=== PATIENT | male | born 1960 ===

== ENCOUNTER 2016-11-18 15:39 | Emergency (ER) | payer OTHER ==
[2016-11-18 16:12] VITALS: BP 148/79
--- NOTE | 2016-11-18 17:01 | UC ---
Complaint Male HPI - HPI Summary HPI Summary: Painful urination starting 2-3 days ago. Pt had similar symptoms and was dx with UTI in Oct 2015 by this author. Pt states that he seemed to improve with antibiotics in 2015, though urine culture did not grow anything. Has been sexually active in the last year, states he always uses barrier with sex. Hasn' t had any prostate testing with PCP, no acute problems but has noticed gradual reduction in urine stream over years. Denies back pain, fever, or vomiting. No scrotal or testicular pain/lump/swelling. - History of Current Complaint Chief Complaint: UC Stated Complaint: UTI Time Seen by Provider: 11/18/16 16:23 Hx Obtained From: Patient Onset/Duration: Gradual Onset, Lasting Days Timing: Constant Severity Initially: Mild Severity Currently: Moderate Pain Intensity: 6 Location: Penis - un urethra Character: Burning Aggravating Factor(s): Voiding, Straining Associated Signs And Symptoms: Positive: Dysuria - Allergies/Home Medications Allergies/Adverse Reactions: Allergies Allergy/AdvReac Type Severity Reaction Status Date / Time No Known Allergies Allergy Verified 11/03/15 13:39 PMH/Surg Hx/FS Hx/Imm Hx Endocrine History Of: Denies: Diabetes, Thyroid Disease Cardiovascular History Of: Denies: Cardiac Disorders, Hypertension Respiratory History Of: Denies: COPD, Asthma GI/ History Of: Denies: Ulcer - Surgical History Surgical History: None - Family History Known Family History: Negative: Hypertension - Social History Alcohol Use: Occasionally Substance Use Type: None Smoking Status (MU): Never Smoked Tobacco - Immunization History Most Recent Influenza Vaccination: fall 2015 Review of Systems Constitutional: Negative Skin: Negative Eyes: Negative ENT: Negative Respiratory: Negative Cardiovascular: Negative Gastrointestinal: Negative Genitourinary: Dysuria, Frequency Motor: Negative Neurovascular: Negative Musculoskeletal: Negative Neurological: Negative Psychological: Negative All Other Systems Reviewed And Are Negative: Yes Physical Exam Triage Information Reviewed: Yes Appearance: Well-Appearing, No Pain Distress, Well-Nourished Vital Signs: Initial Vital Signs Temp 98.0 F 11/18/16 16:06 Pulse 61 11/18/16 16:06 Resp 16 11/18/16 16:06 BP 148/79 11/18/16 16:06 Pulse Ox 100 11/18/16 16:06 Vital Signs Reviewed: Yes Eye Exam: Normal Eyes: Positive: Conjunctiva Clear ENT Exam: Normal ENT: Positive: Normal ENT inspection, Hearing grossly normal, Pharynx normal, TMs normal Dental Exam: Normal Neck exam: Normal Neck: Positive: Supple, Nontender, No Lymphadenopathy Respiratory Exam: Normal Respiratory: Positive: Chest non-tender, Lungs clear, Normal breath sounds, No respiratory distress, No accessory muscle use Cardiovascular Exam: Normal Cardiovascular: Positive: RRR, No Murmur Abdominal Exam: Normal Abdomen Description: Positive: Nontender, No Organomegaly. Negative: CVA Tenderness (R), CVA Tenderness (L) Musculoskeletal Exam: Normal Neurological Exam: Normal Psychological Exam: Normal Skin Exam: Normal Complaint Male Course/Dx - Differential Dx/Diagnosis Provider Diagnoses: UTI Discharge - Discharge Plan Condition: Stable Disposition: HOME Prescriptions: Ciprofloxacin TAB* [Cipro Tab*] 500 mg PO BID #14 tab Patient Education Materials: Dysuria (ED) Referrals: Danielle Dewitt MD [Primary Care Provider] - 7 Days Additional Instructions: Labwork pending. Please see your primary care provider later this week or early next week for follow-up and to ensure you are improving.
== END 2016-11-18 17:04 | disposition home or self-care (01) ==
LOC: UCEAST 15:39
DX: N39.0 Urinary tract infection, site not specified (principal); B96.89 Other specified bacterial agents as the cause of diseases classified elsewhere
CPT/HCPCS: 36415; 81002; 86703; 87077; 87086; 87186; 87491; 87591; 99212; G0463

== ENCOUNTER 2018-11-07 08:22 | Emergency (ER) | payer OTHER ==
[2018-11-07 08:31] VITALS: BP 129/80
--- NOTE | 2018-11-07 08:47 | UC ---
Complaint Male HPI - HPI Summary HPI Summary: 58 yo male presents with urinary burning and pain. He tells me that he has a history of urinary retention and has had to have catheters placed in the past to relieve this issue. Recently he was visiting [facility] on 11/04 and had issues with urinary retention. Went to an ER there and a catheter was placed and he was advised to f/u with Urology in 1 week (has appt on 11/11) for re-eval and cath remover. Yesterday he began to have burning and pain in his penis that is worse when urine is passing. He is concerned there might be an infection. He denies fever, chills, fatigue, abdominal pain, n/v. - History of Current Complaint Chief Complaint: UCGU Stated Complaint: POSS UTI Time Seen by Provider: 11/07/18 08:46 Hx Obtained From: Patient Onset/Duration: Gradual Onset Timing: Constant Severity Initially: Moderate Severity Currently: Moderate Pain Intensity: 7 Pain Scale Used: 0-10 Numeric - Allergies/Home Medications Allergies/Adverse Reactions: Allergies Allergy/AdvReac Type Severity Reaction Status Date / Time No Known Allergies Allergy Verified 11/07/18 08:31 Home Medications: Home Medications Flomax CAP* 1 tab PO DAILY 11/07/18 [History Confirmed 11/07/18] PMH/Surg Hx/FS Hx/Imm Hx - Additional Past Medical History Additional PMH: Urinary retention - Surgical History Surgical History: None - Family History Known Family History: Negative: Hypertension - Social History Occupation: Employed Full-time Lives: With Family Alcohol Use: Occasionally Substance Use Type: None Smoking Status (MU): Never Smoked Tobacco - Immunization History Most Recent Influenza Vaccination: fall 2015 Review of Systems All Other Systems Reviewed And Are Negative: Yes Constitutional: Positive: Negative Skin: Positive: Negative Respiratory: Positive: Negative Cardiovascular: Positive: Negative Gastrointestinal: Positive: Negative Genitourinary: Positive: Dysuria Neurological: Positive: Negative Psychological: Positive: Negative Physical Exam - Summary Physical Exam Summary: GENERAL: NAD. WDWN. No pain distress. SKIN: No rashes, sores, lesions, or open wounds. NECK: Supple. Nontender. No lymphadenopathy. CHEST: CTAB. No r/r/w. No accessory muscle use. Breathing comfortably and in no distress. CV: RRR. Without m/r/g. Pulses intact. Cap refill <2seconds ABDOMEN: Soft. NTTP. No CVA tenderness. Bowel sounds present NEURO: Alert. PSYCH: Age appropriate behavior. Triage Information Reviewed: Yes Vital Signs: Initial Vital Signs Temp 98.6 F 11/07/18 08:27 Pulse 99 11/07/18 08:27 Resp 18 11/07/18 08:27 BP 129/80 11/07/18 08:27 Pulse Ox 100 11/07/18 08:27 Laboratory Tests 11/07/18 08:49 POC Urine Color Stephani POC Urine Clarity Cloudy POC Urine pH 6.5 POC Ur Specif [place] 1.025 POC Urine Protein 2+ A POC Ur Glucose (UA) Negative POC Urine Ketones Negative POC Urine Blood 3+ A POC Urine Nitrite Negative POC Urine Bilirubin Negative POC Urine Urobilinogen 1.0 POC U Leukocyte Esteras Negative Vital Signs Reviewed: Yes Male Genital Exam: Positive: Bleeding - Scant Dried blood at meatus. Negative: Epididymal Tenderness, Inguinal Tenderness, Scrotum Tenderness (R), Scrotum Tenderness (L), Testicular Tenderness (R), Testicular Tenderness (L), Urethral Discharge Complaint Male Course/Dx - Course Course Of Treatment: Urine without sign of infection at this time, however given pt's symptoms and recent cath placement - will cover with antibiotics. Advised to be sure to attend his f/u with Urology on 11/11. - Differential Dx/Diagnosis Provider Diagnosis: Urinary retention Discharge - Sign-Out/Discharge Documenting (check all that apply): Patient Departure All imaging exams completed and their final reports reviewed: No Studies - Discharge Plan Condition: Stable Disposition: HOME Prescriptions: Ciprofloxacin TAB* [Cipro 500 MG TAB*] 500 mg PO BID #14 tab Patient Education Materials: Urinary Retention in Men (ED) Referrals: Danielle Dewitt MD [Primary Care Provider] - Additional Instructions: If you develop a fever, shortness of breath, chest pain, new or worsening symptoms - please call your PCP or go to the ED. Please attend your follow up appointment with Urology on 11/11/18 - Billing Disposition and Condition Condition: STABLE Disposition: Home - Attestation Statements Provider Attestation: Per institutional requirements, I have reviewed the chart, however, I was not consulted specifically or made aware of this patient by the midlevel provider. I did not personally evaluate, interact with , or disposition this patient.
== END 2018-11-07 09:37 | disposition home or self-care (01) ==
LOC: UCEAST 08:22
DX: R33.9 Retention of urine, unspecified (principal); R30.0 Dysuria
CPT/HCPCS: 81003; 87086; 99211; G0463